=== PATIENT | female | born 1970 | race Caucasian/White ===

== ENCOUNTER → 2023-08-10 12:57 | Outpatient (REF) | payer BC, SELFPAY | LOC: HWRAD 12:57 | PROVIDERS: ATTENDING PHYSICIAN Obstetrics & Gynecology Gynecology; FAMILY PHYSICIAN Internal Medicine | DX: N95.0 Postmenopausal bleeding (principal) | CPT/HCPCS: 76830; 76856 ==

== ENCOUNTER → 2023-08-23 11:02 | Outpatient (REF) | payer BC, SELFPAY | LOC: RAD 11:02 | PROVIDERS: ATTENDING PHYSICIAN Internal Medicine | DX: K21.9 Gastro-esophageal reflux disease without esophagitis (principal) | CPT/HCPCS: 74246 ==

== ENCOUNTER → 2023-09-19 07:34 | Outpatient (REF) | payer BC, SELFPAY | LOC: RCS 07:34 | PROVIDERS: ATTENDING PHYSICIAN Internal Medicine Cardiovascular Disease; FAMILY PHYSICIAN Internal Medicine | DX: R07.9 Chest pain, unspecified (principal); E78.5 Hyperlipidemia, unspecified | CPT/HCPCS: 93017 ==

== ENCOUNTER 2023-10-14 06:04 | Day surgery (SDC) | payer BC, SELFPAY ==
[2023-10-14] VITALS (9 sets, daily range): BP systolic 93–114; BP diastolic 47–65; BMI 29.7
[2023-10-14] MEDS: NORMOSOL-R 1000 IV (06:48)
[2023-10-14 07:20] LABS: HCG, Urine Qualitative Screen Negative
--- NOTE | 2023-10-14 08:25 | SUR.PHASEI ---
Received pt from OR, hooked up to services program manager. Pt resting comfortably. Report given to [facility]
[2023-10-14] MEDS: ZOFRAN 4 MG IV (08:59)
--- NOTE | 2023-10-14 09:40 | PTCARENOTE ---
Addendum note 0900 Patient reporting chest heaviness, reports H/O SVT usually precedes SVT. NSR HR 80's no ectopy noted. VSS, denies any radiation of pain. Nasal canula reapplied and Dr Felix at bedside eval no further orders. Chest heaviness
subsided and completely resolved along with nausea. Placed back on RA and will proceed with transfer to [facility].
== END 2023-10-14 10:05 | disposition home or self-care (01) ==
LOC: SDS 06:04
PROVIDERS: ATTENDING PHYSICIAN Obstetrics & Gynecology Gynecology
DX: N93.9 Abnormal uterine and vaginal bleeding, unspecified (principal)
CPT/HCPCS: 58558; 88305; 81025

== ENCOUNTER 2023-10-17 15:22 | Emergency (ER) | payer BC, SELFPAY ==
[2023-10-17 15:30] VITALS: BP 116/77
[2023-10-17] MEDS: MOTRIN 600 MG PO (15:44)
[2023-10-17 15:56] LABS: % Basophils 0.5 % (0-2); % Eosinophils 1.4 % (0-6); % Immature Granulocytes 0.4 % (0-0.5); % Lymphocytes 12.8 % (20.5-51.1); % Neutrophils 71.9 % (42.2-75.2); Absolute Eosinophils 0.1 10^3/uL (0-0.7); Absolute Lymphocytes 0.7 10^3/uL (1.2-3.4); Absolute Monocytes 0.7 10^3/uL (0.1-0.6); Absolute Neutrophils 4.1 10^3/uL (1.4-6.5); Hematocrit 40.8 % (37.0-47.0); Hemoglobin 13.8 g/dL (12.0-16.0); Mean Corp Hgb Conc. 33.8 g/dL (33.0-37.0); Mean Corpuscular Hgb 30.4 pg (27.0-31.0); Mean Corpuscular Volume 89.9 fL (81.0-99.0); Mean Platelet Volume 9.2 fL (7.4-10.4); Nucleated Red Blood Cells % 0 %; Platelet Count 246 10^3/uL (130-400); Red Blood Cell Count 4.54 10^6/uL (4.20-5.40); Red Cell Dist. Width 13.1 % (11.5-14.5); White Blood Cell Count 5.6 10^3/uL (4.8-10.8)
[2023-10-17 16:05] LABS: COVID-19 Antigen Negative (Negative)
[2023-10-17 16:18] LABS: ALT (SGPT) 16 U/L (0-35); AST (SGOT) 21 U/L (14-36); Albumin 4.5 g/dl (3.5-5.0); Alkaline Phosphatase 82 U/L (38-126); Blood Urea Nitrogen 12 mg/dl (7-17); Calcium 9.3 mg/dl (8.4-10.2); Carbon Dioxide 25 mmol/L (22-30); Chloride 99 mmol/L (98-107); Glucose 100 mg/dl (70-99); Potassium 4.3 mmol/L (3.5-5.1); Sodium 134 mmol/L (135-145); Total Bilirubin 0.5 mg/dl (0.2-1.3); Total Protein 7.3 g/dl (6.3-8.2); eGFR > 60.00
[2023-10-17 19:52] VITALS: BP 114/72
[2023-10-17 19:57] VITALS: BMI 30.4
--- NOTE | 2023-10-17 20:01 | ED.GENMED ---
History of Present Illness
General
Chief Complaint: Post Operative Problem(s)
Source: patient
Exam Limitations: none
Time Seen by Provider: 10/17/23 19:48
Travel History
Have you had any contact with someone who has COVID-19?: No
Do you have any symptoms of coronavirus? Fever > 100 degrees, chills, cough, shortness of breath, sore throat, loss of taste or smell, muscle aches, or headache?: Yes
Symptoms:: fever
History of Present Illness
History of Present Illness:
See MDM
Past History
Past History
ED Past Medical History: Arrthythmia (SVT), Other (R OC) and Other (Anaphylaxis)
ED Past Surgical History: Gynecological
Social History
Tobacco: Non-smoker
Alcohol: Occasional
Drug: None
Personal:
Living: with family
Employment: Employed
Family History
Family History: Other (Father with [place] at 45. Significant family history of heart disease)
Phy Exam
Physical Exam
Physical Exam:
See MDM
Course
Orders/Labs/Results
Orders:
Orders
10/17/23 15:42
COVID-19 Antigen Urgent
Source: Nasal Swab
Complete Blood Count/With Diff Urgent
Comprehensive Metabolic Panel Urgent
Blood Culture Urgent
MOOK Source: Blood/Venous
Specimen Description:
Influenza A+B Rapid Molecular Urgent
MOOK Source: Nasal Swab
Specimen Description:
Ibuprofen [Motrin] 600 mg .ROUTE .STK-MED ONE
10/17/23 15:43
Ibuprofen [Motrin] 600 mg PO NOW STA
10/17/23 15:45
Chest [CR Chest - 2 Views ] Urgent
Comment:
Reason For Exam: cough
10/17/23 20:05
CT Abd/pelvis W Iv Cont Urgent
Comment:
Reason For Exam: Fever, lower abd pain, recent uterine biopsy
Ketorolac [Toradol] 30 mg IV NOW STA
10/17/23 20:12
Doxycycline [Vibramycin] 100 mg PO NOW STA
Abnormal Lab Results
10/17/23
15:42
Absolute Lymphs (auto) 0.7 L 10^3/uL
(1.2-3.4)
Absolute Monos (auto) 0.7 H 10^3/uL
(0.1-0.6)
Lymphocytes % 12.8 L %
(20.5-51.1)
Monocytes % 13.0 H %
(1.7-9.3)
Sodium 134 L mmol/L
(135-145)
Glucose 100 H mg/dl
(70-99)
10/17/23 15:42
10/17/23 15:42
Vital Signs
Initial and Last Documented VS:
Initial Vital Signs
Temp Pulse Resp BP Pulse Ox
102.4 F H 121 18 116/77 98
10/17/23 15:30 10/17/23 15:30 10/17/23 15:30 10/17/23 15:30 10/17/23 15:30
Last Documented Vital Signs
Temp Pulse Resp BP Pulse Ox
98.6 F 77 18 101/66 93
10/17/23 20:03 10/17/23 21:26 10/17/23 15:30 10/17/23 22:00 10/17/23 22:00
MDM/Problems Addressed
Differential Diagnosis Includes:
HPI and MDM Narrative:
53-year-old female presenting for evaluation of fever. A few days ago, patient had a D&C and uterine biopsy for abnormal uterine bleeding. 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 Patient
planes of mild cough which she believes could be related to the general anesthesia and intubation. Complains of a sore throat. She complains of mild vaginal spotting but denies urinary symptoms or vaginal discharge. She complains of mild myalgias
and generalized fatigue.
On exam, she is well-appearing nontoxic. She was found to have a fever in triage and given Motrin. Lungs are clear. Abdomen soft and nontender. On my evaluation, blood work is already returned and she has a normal white blood cell count. COVID
and flu negative. Chest x-ray clear. Will discuss case with GI
Physical exam
General: Well appearing and non-toxic
HEENT: protecting airway. Posterior pharynx clear
Neck: supple
CV: No evidence of cyanosis
Resp: No accessory muscle use. Lungs clear
Abd: Non-distended. Soft and nontender
Extremities: No deformities
Neuro: alert
Psych: Normal affect
Skin: Warm
Problems Addressed including Acute and Chronic Conditions affecting care:
1. Fever
Acuity: acute
Prognosis: stable
Details: No obvious source. Patient did have recent uterine biopsy but denies abdominal pain or discharge.
Updates
8:10 PM Case discussed with her inspector and mender. Given the elevated fever, will obtain CT looking for postsurgical infection. Regardless, will start doxycycline. Blood cultures were obtained
10:[address] negative for acute pathology which would answer fever. DISTRICT [employer] will follow-up first thing tomorrow morning
Differential Diagnosis (but not limited to): Endometritis, viral infection, pneumonia
Testing considered: Urinalysis but she denies symptoms
Drug therapy (if applicable): OTC meds, please see d/c instruction regarding Rx drugs
Amount and/or Complexity of Data Reviewed
Clinical info obtained from: Patient
External data reviewed: N/A
Labs I independently reviewed (but not limited to): White blood cell count
Radiology: The CT scan was personally and independently reviewed. In addition, official CT report reviewed.
Pulse Ox: not hypoxic
EKG independently reviewed: N/A
Fire Management Specialist: N/A
Critical Care: N/A
Risk of Complication:
Social Determinants of health: Good social support
Discussed with other providers: Gynecology
Escalation of Care includes Admit/Obs: After being observed in the Emergency Department, pt stable for discharge.
Occasional wrong word or 'sound a like' substitutions may have occurred due to the inherent limitations of voice recognition software. Read the chart carefully and recognize, using context, where substitutions have occurred.
*Critical Care Note
Total Time (30-74mins, 75-104mins- exclusive of procedures): Not Applicable
ED Attending Note
-
Portions of this chart may have been created with voice recognition software.� Occasional wrong word or��sound alike� substitutions may have occurred due to the inherent limitations of voice recognition software.
Discharge Plan
Departure
Patient Disposition: Home (Routine Discharge)
Date of Disposition: 10/17/23
Time of Disposition: 22:43
Patient with high blood pressure during this ER visit?: No
Discharge Problem:
Fever
Prescriptions:
New
doxycycline hyclate 100 mg capsule
100 mg PO BID Qty: 14 0RF
Referrals:
Jen Whitlock MD [Family Provider] -
Activity Restrictions/Additional Instructions:
As we discussed, it is not clear where the fever is coming from. Please follow-up with your DISTRICT MANAGER [employer]AL [employer]ICE tomorrow morning at 7:45 AM.
Please return for worsening symptoms..
Interventions
Interventions:
*Risk Screen - Suicide Last Done: 10/17/23 15:30
*General Assessment Last Done: 10/17/23 15:30
*Neglect/Abuse Screening Last Done: 10/17/23 15:30
ED- Fall Risk Assessment Last Done: 10/17/23 19:59
*ED COVID-19 Vaccine History Last Done: 10/17/23 15:30
ED- Neurological Assessment Last Done: 10/17/23 19:59
ED-Skin Assessment Last Done: 10/17/23 19:59
Discharge Date and Time
Print Language: CHILEAN
[2023-10-17] MEDS: VIBRAMYCIN 100 MG PO (20:16)
[2023-10-17] MEDS: TORADOL 30 MG IV (20:16)
[2023-10-17 21:20] VITALS: BP 101/69
[2023-10-17 22:00] VITALS: BP 101/66
== END 2023-10-17 22:57 | disposition home or self-care (01) ==
LOC: EMR 15:22
PROVIDERS: Emergency Medicine; EMERGENCY PHYSICIAN Student in an Organized Health Care Education/Training Program; FAMILY PHYSICIAN Internal Medicine
DX: R50.9 Fever, unspecified (principal); Z11.52 Encounter for screening for COVID-19
CPT/HCPCS: 99285; 96374; 71046; 74177; 80053; 85025; 87040; 87502; 87811; Q9967

== ENCOUNTER 2023-10-18 14:14 | Inpatient (IN) | payer BC, SELFPAY ==
--- NOTE | 2023-10-18 12:47 | W.PN.ADMIT ---
Progress Note - Admit
Progress Note - Admit
Pt had Hyst D+C Tuesday - Tuesday night started to feel bad - Temp 102 F on Tuesday - seen in ER - w/u negative with BW - CT - CXR and blood cx
Came into the office with cont temp 101.2 - still feeling achy with mild abd pain - will admit for IV antibiotics
Will tx with IV zosyn abd watch CBC lytes
Await Blood cultures
Urine sent from the office
Motrin and tylenol prn
---
See dictated H+P
[2023-10-18 15:03] VITALS: BMI 28.3
[2023-10-18] MEDS: ZOSYN 50 IV ×2 (15:29→19:54)
[2023-10-18] MEDS: NORMOSOL-R 1000 IV ×2 (15:29→23:36)
[2023-10-18 15:30] VITALS: BP 103/71
[2023-10-18 17:36] VITALS: BP 118/67
[2023-10-18] MEDS: HEPARIN 5000 UNITS SC (19:51)
[2023-10-18 20:00] VITALS: BP 90/64
[2023-10-18] MEDS: BENADRYL 25 MG PO (23:39)
[2023-10-18 23:51] VITALS: BP 102/59
[2023-10-19] MEDS: ZOSYN 50 IV ×4 (02:10→20:24)
--- NOTE | 2023-10-19 04:45 | DOWNTIME ---
There was a [employer] Clerk Crating Downtime on 10/19/2023 from 0100 to 10/19/2023 at 0439. Downtime documentation of patient's care, including medication administrations, has been reconciled in the electronic record per guidelines. Refer to the
patient's paper chart under the miscellaneous tab to see printed paper medication records and downtime forms.
[2023-10-19 05:05] VITALS: BP 118/87
[2023-10-19 05:37] LABS: % Basophils 0.6 % (0-2); % Immature Granulocytes 0.3 % (0-0.5); % Lymphocytes 50.7 % (20.5-51.1); % Monocytes 12.3 % (1.7-9.3); % Neutrophils 34.1 % (42.2-75.2); Absolute Eosinophils 0.1 10^3/uL (0-0.7); Absolute Lymphocytes 1.8 10^3/uL (1.2-3.4); Absolute Monocytes 0.4 10^3/uL (0.1-0.6); Absolute Neutrophils 1.2 10^3/uL (1.4-6.5); Hematocrit 37.4 % (37.0-47.0); Hemoglobin 12.5 g/dL (12.0-16.0); Mean Corp Hgb Conc. 33.4 g/dL (33.0-37.0); Mean Corpuscular Volume 89.9 fL (81.0-99.0); Nucleated Red Blood Cells % 0 %; Red Blood Cell Count 4.16 10^6/uL (4.20-5.40); Red Cell Dist. Width 13.2 % (11.5-14.5); White Blood Cell Count 3.5 10^3/uL (4.8-10.8)
[2023-10-19 05:57] LABS: Blood Urea Nitrogen 11 mg/dl (7-17); Calcium 8.3 mg/dl (8.4-10.2); Carbon Dioxide 29 mmol/L (22-30); Chloride 104 mmol/L (98-107); Estimated Creatinine Clearance 82 ml/min; Glucose 95 mg/dl (70-99); Potassium 4.7 mmol/L (3.5-5.1); Sodium 136 mmol/L (135-145); eGFR > 60.00
--- NOTE | 2023-10-19 06:24 | W.PN.GYN.DG ---
Today's Communication / Plan
-
Stop IVF
Cont IV antibiotic
Cont to monitor temp - if cont Afebrile poss d/c to home
Assessment / Plan
-
Assessment:
HD #2 post op fever - viral vs bacterial
Plan:
Stop IVF
Cont IV antibiotic
Cont to monitor temp - if cont Afebrile poss d/c to home
Subjective / Objective Data
Subjective Data
Pt feeling better - mild cough last night - no pain meds needed - did not take any meds for fever either
Objective Data
Vital Signs
Temp Pulse Resp BP
98.8 F 68 18 118/87
10/19/23 05:05 10/19/23 05:05 10/19/23 05:05 10/19/23 05:05
Intake & Output
10/17/23 10/18/23 10/19/23
06:59 06:59 06:59
Intake Total 2605 / 2605
Balance 2605 / 2605
Intake:
Oral fluids 630 / 630
IV fluids (Total) 1875 / 1875
IV piggybacks 100 / 100
Physical Exam
-
Cardiac: Regular rate & rhythm
Lungs: Clear: Bilateral
Abdomen: Soft and Nontender
Bowel Sounds: Normal
Data Reviewed
-
Lab Data
10/19/23 05:01
10/19/23 05:01
--- NOTE | 2023-10-19 06:29 | PTCARENOTE ---
Dr. Awad notified 10/18/23 @ 4287 regarding two loose stools patient had. No change in plan of care.
[2023-10-19 07:00] LABS: Mean Platelet Volume 9.4 fL (7.4-10.4); Platelet Count 195 10^3/uL (130-400)
[2023-10-19] MEDS: HEPARIN 5000 UNITS SC (09:00)
--- NOTE | 2023-10-19 09:34 | PTCARENOTE ---
filling bladder for US.
--- NOTE | 2023-10-19 10:29 | PTCARENOTE ---
To US via wheelchair .
--- NOTE | 2023-10-19 12:53 | CM ---
Spoke with pt at bedside
Lives with and children in a 3 story home
Describes self as independent
Denies past DME, SNF, HH
Has ride at d/c
Plan - anticipate home no needs
[2023-10-19 12:57] VITALS: BP 114/71
[2023-10-19 15:41] VITALS: BP 95/68
[2023-10-19 20:00] VITALS: BP 125/67
[2023-10-19] MEDS: HEPARIN SC (20:38)
--- NOTE | 2023-10-19 22:34 | PTCARENOTE ---
Addendum entered by Lakisha Steen RN 10/19/23 22:37:
notified was Dr Awad. No change in plan of care.
Original Note:
Pt reported mod bright red bleeding and three egg sized blood clots to RN. notified of pt report. Scheduled heparin held. Pt told to notify RN if she passes another blood clot and to leave blood in the toilet for RN to observe.
[2023-10-20 00:12] VITALS: BP 126/78
[2023-10-20] MEDS: ZOSYN 50 IV ×3 (02:00→14:10)
[2023-10-20 04:32] VITALS: BP 97/69
[2023-10-20 04:45] LABS: % Basophils 0.4 % (0-2); % Eosinophils 1.8 % (0-6); % Immature Granulocytes 0.4 % (0-0.5); % Lymphocytes 42.7 % (20.5-51.1); % Monocytes 9.3 % (1.7-9.3); % Neutrophils 45.4 % (42.2-75.2); Absolute Eosinophils 0.1 10^3/uL (0-0.7); Absolute Lymphocytes 1.9 10^3/uL (1.2-3.4); Absolute Monocytes 0.4 10^3/uL (0.1-0.6); Hematocrit 38.9 % (37.0-47.0); Hemoglobin 13.3 g/dL (12.0-16.0); Mean Corp Hgb Conc. 34.2 g/dL (33.0-37.0); Mean Corpuscular Hgb 30.6 pg (27.0-31.0); Mean Corpuscular Volume 89.6 fL (81.0-99.0); Nucleated Red Blood Cells % 0 %; Red Blood Cell Count 4.34 10^6/uL (4.20-5.40); Red Cell Dist. Width 13.2 % (11.5-14.5); White Blood Cell Count 4.5 10^3/uL (4.8-10.8)
--- NOTE | 2023-10-20 06:22 | W.PN.GYN.DG ---
Today's Communication / Plan
-
Fever has improved - normal CBC and Blood cx negative
Urine done in the office still pending
Pt c/o fatigue - would like to wait until this afternoon for poss d/c
Suspect viral issue - will cont IV antibiotics
Will see pt this afternoon for poss d/c
Assessment / Plan
-
Assessment:
HD #3 post op fever
Plan:
Fever has improved - normal CBC and Blood cx negative
Urine done in the office still pending
Pt c/o fatigue - would like to wait until this afternoon for poss d/c
Suspect viral issue - will cont IV antibiotics
Will see pt this afternoon for poss d/c
Subjective / Objective Data
Subjective Data
Pt cont to c/o fatigue - no pain - + VB mild to mod after D+C + tickle in throat feels it is from anesthesia tube - T max 100.3
Objective Data
Vital Signs
Temp Pulse Resp BP
97.8 F 69 16 97/69
10/20/23 04:32 10/20/23 04:32 10/20/23 04:32 10/20/23 04:32
Intake & Output
10/18/23 10/19/23 10/20/23
06:59 06:59 06:59
Intake Total 2605 / 2605 100 / 100
Balance 2605 / 2605 100 / 100
Intake:
Oral fluids 630 / 630
IV fluids (Total) 1875 / 1875
IV piggybacks 100 / 100 100 / 100
Physical Exam
-
Cardiac: Regular rate & rhythm
Lungs: Clear: Bilateral
Abdomen: Soft and Nontender
Bowel Sounds: Normal
Extremities: No Calf Tenderness and No Edema
Data Reviewed
-
Lab Data
10/20/23 04:22
10/19/23 05:01
[2023-10-20 06:45] LABS: Mean Platelet Volume 9.6 fL (7.4-10.4); Platelet Count 211 10^3/uL (130-400)
[2023-10-20 08:00] VITALS: BP 98/62
[2023-10-20] MEDS: HEPARIN 5000 UNITS SC (08:38)
[2023-10-20 12:30] VITALS: BP 110/66
[2023-10-20 16:05] VITALS: BP 104/68
--- NOTE | 2023-10-20 16:06 | W.PN.UPDATE ---
Update Note
Progress Note Update
Came by to check on pt - Afebrile - VSS stabele - feeling better.
Ready to go home - no abd pain - cough resolved
Urine cx from office still [pending
Blood cx have been negative so far
Pelvic u/s normal
Path from D+C normal
Will cont augmentin BID for 7 days - rx sent through office computer system
Cont to monitor temp - call if fever
Keep post op check in 1 week
--- NOTE | 2023-10-20 16:12 | W.DS.TRANS ---
DC Summary - [employer]
-
Discharge Instructions:
Discharge Diagnosis/Procedures post op fever
Diet No restrictions
Activity No restrictions
Driving Restrictions As prior to admission
Bathing Restrictions None
Instructions:
Stand-Alone Forms:
Changes to Home Medications: No
Discharge Medications:
Home Medication Changes
Pending Results: No
--- NOTE | 2023-10-20 16:19 | PTCARENOTE ---
Dr. Awad into see pt aware of vital signs, temp 99.0 bp 104/68, p 89, pt denies any vaginal bleeding,or pain INT D/C catheter intact. Pt Okay for discharge per
== END 2023-10-20 16:41 | disposition home or self-care (01) | DRG 864 ==
LOC: LDRP 14:14
PROVIDERS: ADMITTING PHYSICIAN Obstetrics & Gynecology Gynecology
DX: R50.82 Postprocedural fever (principal)
CPT/HCPCS: 76830; 76856; 80048; 85025

== ENCOUNTER → 2023-10-25 10:06 | Outpatient (REF) | payer BC, SELFPAY | LOC: WDC 10:06 | PROVIDERS: ATTENDING PHYSICIAN Obstetrics & Gynecology Gynecology; FAMILY PHYSICIAN Internal Medicine | DX: R92.2 Inconclusive mammogram (principal); Z12.31 Encounter for screening mammogram for malignant neoplasm of breast | CPT/HCPCS: 76641; 77063; 77067 ==

== ENCOUNTER → 2023-11-22 06:30 | Day surgery (SDC) | payer BC, SELFPAY | LOC: GI 06:30 | PROVIDERS: ATTENDING PHYSICIAN Internal Medicine Gastroenterology | DX: K31.7 Polyp of stomach and duodenum (principal); K44.9 Diaphragmatic hernia without obstruction or gangrene; K22.89 Other specified disease of esophagus; K31.89 Other diseases of stomach and duodenum; R12 Heartburn; K20.90 Esophagitis, unspecified without bleeding; R14.0 Abdominal distension (gaseous); K29.50 Unspecified chronic gastritis without bleeding; K22.10 Ulcer of esophagus without bleeding | CPT/HCPCS: 43239; 88305; 88342 ==

== ENCOUNTER → 2024-03-21 14:25 | Outpatient (REF) | payer BC, SELFPAY | LOC: WDC 14:25 | PROVIDERS: ATTENDING PHYSICIAN Obstetrics & Gynecology Gynecology; FAMILY PHYSICIAN Internal Medicine | DX: R92.8 Other abnormal and inconclusive findings on diagnostic imaging of breast (principal) | CPT/HCPCS: 76642 ==

== ENCOUNTER → 2024-08-14 07:57 | Outpatient (REF) | payer BC, SELFPAY | LOC: WDC 07:57 | PROVIDERS: ATTENDING PHYSICIAN Obstetrics & Gynecology Gynecology | DX: R92.8 Other abnormal and inconclusive findings on diagnostic imaging of breast (principal) | CPT/HCPCS: 76642 ==

== ENCOUNTER → 2024-10-25 16:35 | Outpatient (REF) | payer BC, SELFPAY | LOC: WDC 16:35 | PROVIDERS: ATTENDING PHYSICIAN Obstetrics & Gynecology Gynecology; FAMILY PHYSICIAN Family Medicine | DX: Z12.31 Encounter for screening mammogram for malignant neoplasm of breast (principal); Z80.3 Family history of malignant neoplasm of breast | CPT/HCPCS: 77063; 77067 ==

== ENCOUNTER 2025-06-30 00:31 | Emergency (ER) | payer BC, SELFPAY ==
[2025-06-30 00:39] VITALS: BP 131/79
[2025-06-30 01:00] VITALS: BP 131/71; BMI 28.4
--- NOTE | 2025-06-30 01:19 | ED.GENMED ---
History of Present Illness
<Waqas Mullins MD, Resident - Last Filed: 06/30/25 03:37>
General
Chief Complaint: Chest Pain
Time Seen by Provider: 06/30/25 01:17
History of Present Illness
History of Present Illness:
55 yo F PMH MTHFR mutation (elevated homocysteine levels), remote history of SVT, GERD p/w chest pressure that began around noon after shoveling snow. It decreased after she stopped shoveling. she also experienced some lightheadedness and reports
that she was tachycardic per apple watch to 130s.
endorses some headache, chest pressure radiates to shoulder. also some tingling in both hands.
endorses palpitations
denies dyspnea
denies abdominal pain
she denies immobilization, recent surgeries, leg swelling, recent travel, hemoptysis
no fevers/chills
family history notable for father who had OR at age 45 yo, 2 aunts who from [place]
she tried a medical marijuana gummy to no benefit
otherwise, no smoking, social etoh, no cocaine/heroin usage
Past History
<Waqas Mullins MD, Resident - Last Filed: 06/30/25 03:37>
Past History
ED Past Medical History: Arrthythmia (SVT), Other (R OC) and Other (Anaphylaxis)
ED Past Surgical History: Gynecological
Social History
Tobacco: Non-smoker
Alcohol: Occasional
Drug: None
Personal:
Living: with family
Employment: Employed
Family History
Family History: Other (Father with [place] at 45. Significant family history of heart disease)
Review of Systems
<Waqas Mullins MD, Resident - Last Filed: 06/30/25 03:37>
Review of Systems
Constitutional: Reports no symptoms
EENT: Reports no symptoms
Respiratory: Reports no symptoms
Cardiac: Reports chest pain and palpitations
ABD/GI: Reports no symptoms
Musculoskeletal: Reports no symptoms
Neurological: Reports dizzy
Phy Exam
<Waqas Mullins MD, Resident - Last Filed: 06/30/25 03:37>
Physical Exam
Physical Exam:
VS: 131/71; HR 69; T 98.3; RR 13, O2sat 96%
General: no acute distress
CV: no murmurs, pain is not reproducible to palpation
Pulm: CTAB
GI: + bowel sounds, no tenderness to palpation
MSK: no lower extremity edema, no unilateral calf swelling on my exam
Neuro: AOx3, nonfocal
Scores
<Waqas Mullins MD, Resident - Last Filed: 06/30/25 03:37>
Heart Score for Chest Pain Patients
STEMI patient?: No
History: Slightly or Non-Suspicious
ECG: Normal
Age: >45 - <65 years
Risk Factors: 1 or 2 Risk Factors
Troponin: </= Normal Limit
Heart Score for Chest Pain Patients: 2
Heart Score Risk: 2.5% MACE over next 6 weeks
Course
<Waqas Mlulins MD, Resident - Last Filed: 06/30/25 03:37>
Orders/Labs/Results
Orders:
Orders
06/30/25 00:33
EKG [Electrocardiogram (*1)] Urgent
Reason for Study: Chest Pain
06/30/25 00:34
EKG- Treatment ONCE
06/30/25 01:14
Complete Blood Count/With Diff Urgent
Comprehensive Metabolic Panel Urgent
Troponin I Urgent
06/30/25 01:50
CR Chest - 2 Views Urgent
Comment:
Reason For Exam: chest pain
06/30/25 01:52
Add On- LAB Urgent
Tests Added?: D-dimer
06/30/25 02:08
D-Dimer Urgent
Abnormal Lab Results
06/30/25
01:14
RBC 3.91 L 10^6/uL
(4.20-5.40)
Hgb 11.9 L g/dL
(12.0-16.0)
Hct 34.3 L %
(37.0-47.0)
BUN 19 H mg/dl
(7-17)
06/30/25 01:14
06/30/25 01:14
Vital Signs
Initial and Last Documented VS:
Initial Vital Signs
Temp Pulse Resp BP Pulse Ox
98.3 F 71 16 131/79 100
06/30/25 00:39 06/30/25 00:39 06/30/25 00:39 06/30/25 00:39 06/30/25 00:39
Last Documented Vital Signs
Temp Pulse Resp BP Pulse Ox
98.3 F 77 16 102/69 96
06/30/25 00:39 06/30/25 03:30 06/30/25 03:30 06/30/25 03:00 06/30/25 02:15
Tashalt;James Pina, DO - Last Filed: 06/30/25 03:29>
Orders/Labs/Results
Orders:
Orders
06/30/25 00:33
EKG [Electrocardiogram (*1)] Urgent
Reason for Study: Chest Pain
06/30/25 00:34
EKG- Treatment ONCE
06/30/25 01:14
Complete Blood Count/With Diff Urgent
Comprehensive Metabolic Panel Urgent
Troponin I Urgent
06/30/25 01:50
CR Chest - 2 Views Urgent
Comment:
Reason For Exam: chest pain
06/30/25 01:52
Add On- LAB Urgent
Tests Added?: D-dimer
06/30/25 02:08
D-Dimer Urgent
Abnormal Lab Results
06/30/25
01:14
RBC 3.91 L 10^6/uL
(4.20-5.40)
Hgb 11.9 L g/dL
(12.0-16.0)
Hct 34.3 L %
(37.0-47.0)
BUN 19 H mg/dl
(7-17)
06/30/25 01:14
06/30/25 01:14
Vital Signs
Initial and Last Documented VS:
Initial Vital Signs
Temp Pulse Resp BP Pulse Ox
98.3 F 71 16 131/79 100
06/30/25 00:39 06/30/25 00:39 06/30/25 00:39 06/30/25 00:39 06/30/25 00:39
Last Documented Vital Signs
Temp Pulse Resp BP Pulse Ox
98.3 F 77 16 102/69 96
06/30/25 00:39 06/30/25 03:30 06/30/25 03:30 06/30/25 03:00 06/30/25 02:15
<Waqas Mullins MD, Resident - Last Filed: 06/30/25 03:37>
MDM/Problems Addressed
Differential Diagnosis Includes:
stable angina, ACS, PE, costochondritis, DVT, pneumonia, GERD, arrhythmia
MDM/Problems Addressed:
55 yo F PMH MTHFR mutation reuslting in elevated homocysteine, SVT remote, GERD p/w chest pressure that is worse with exertion and relieves with rest.
family hx is n/f father who had OR at 45yo, 2 aunts who from [place]
she is technically in hypercoagulable state with elevated homocysteine levels but denies other risk factors for a PE (recent immobilization, surgeries, travel). physical exam did not show unilateral calf swelling or calf tenderness
chest pain does not appear to be pleuritic
Plan:
- CBC
- CMP
- Troponin x1
- EKG
- CXR
- D-dimer
Update:
- CBC showed hgb 11.9
- CMP largely unremarkable
- Troponin < 0.012 @ 01:14
- EKG NSR
- D-dimer normal 0.32
Patient is medically stable for discharge; and patient is okay to be discharged
<Waqas Mullins MD, Resident - Last Filed: 06/30/25 03:37>
*Pulse Oximetry
SaO2: 96
Oxygen Mode of Delivery: Room air
Patient hypoxic: no
*Critical Care Note
Total Time (30-74mins, 75-104mins- exclusive of procedures): Not Applicable
ED Attending Note
<Waqas Mullins MD, Resident - Last Filed: 06/30/25 03:37>
-
Portions of this chart may have been created with voice recognition software.� Occasional wrong word or��sound alike� substitutions may have occurred due to the inherent limitations of voice recognition software.
<James Pina, DO - Last Filed: 06/30/25 03:29>
ED Attending Note
Patient seen and examined by attending physician: Yes
I performed a history and physical exam of patient and discussed management with resident, I reviewed resident's note and agree with documented findings and plan of care.: Yes
ED Attending Note:
Seen with resident examined independently agree with assessment and plan
Discharge Plan
Departure
Patient Disposition: Home (Routine Discharge)
Date of Disposition: 06/30/25
Time of Disposition: 03:29
Patient with high blood pressure during this ER visit?: No
Condition: Good
Discharge Problem:
Left chest pressure
Instructions: Chest Pain CBC Follow Up
Referrals:
James Buchanan MD [Active, Cardiology] - Next open appointment
Interventions
Interventions:
*General Assessment Last Done: 06/30/25 00:39
*Neglect/Abuse Screening Last Done: 06/30/25 00:39
*ED COVID-19 Vaccine History Last Done: 06/30/25 01:00
*ED Influenza Vaccine History Last Done: 06/30/25 01:00
[facility] Fall Risk Assessment Tool Last Done: 06/30/25 01:00
*Risk Screen - Suicide (C-SSRS) Last Done: 06/30/25 00:39
ED- Cardiac Assessment Last Done: 06/30/25 01:00
Discharge Date and Time
Print Language: UKRAINIAN
[2025-06-30 01:27] LABS: Hematocrit 34.3 % (37.0-47.0); Hemoglobin 11.9 g/dL (12.0-16.0); Mean Corp Hgb Conc. 34.7 g/dL (33.0-37.0); Mean Corpuscular Volume 87.7 fL (81.0-99.0); Nucleated Red Blood Cells % 0 %; Platelet Count 275 10^3/uL (130-400); Red Cell Dist. Width 13.1 % (11.5-14.5)
[2025-06-30 01:46] LABS: ALT (SGPT) 15 U/L (0-35); AST (SGOT) 22 U/L (14-36); Albumin 3.9 g/dl (3.5-5.0); Alkaline Phosphatase 62 U/L (38-126); Blood Urea Nitrogen 19 mg/dl (7-17); Calcium 9.4 mg/dl (8.4-10.2); Carbon Dioxide 26 mmol/L (22-30); Chloride 105 mmol/L (98-107); Estimated Creatinine Clearance 101 ml/min; Glucose 90 mg/dl (70-99); Potassium 3.9 mmol/L (3.5-5.1); Sodium 136 mmol/L (135-145); Total Protein 6.5 g/dl (6.3-8.2); eGFR > 60.00
[2025-06-30 01:52] LABS: Troponin I < 0.012 ng/ml
[2025-06-30 02:00] VITALS: BP 124/66
[2025-06-30 02:36] LABS: D-Dimer 0.32 ug/mlFEU (0.00-0.50)
[2025-06-30 03:00] VITALS: BP 102/69
[2025-06-30 04:00] VITALS: BP 109/67
== END 2025-06-30 04:10 | disposition home or self-care (01) ==
LOC: EMR 00:31
PROVIDERS: Emergency Medicine; EMERGENCY PHYSICIAN Emergency Medicine; FAMILY PHYSICIAN Family Medicine
DX: R07.89 Other chest pain (principal); R51.9 Headache, unspecified; R42 Dizziness and giddiness; R00.2 Palpitations; R20.2 Paresthesia of skin; K21.9 Gastro-esophageal reflux disease without esophagitis; I47.10 Supraventricular tachycardia, unspecified; F41.9 Anxiety disorder, unspecified; E72.12 Methylenetetrahydrofolate reductase deficiency; Z82.49 Family history of ischemic heart disease and other diseases of the circulatory system; Z88.8 Allergy status to other drugs, medicaments and biological substances
CPT/HCPCS: 99284; 71046; 80053; 84484; 85025; 85379; 93005